=== PATIENT | female | born 2005 | race Caucasian/White ===

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

== ENCOUNTER → 2023-01-10 | Outpatient (CLI) | payer OTHER ==
[2023-01-10 22:58] LABS: Gliadin AB IgA, Deaminated Negative (Negative); Gliadin AB IgA, Unit 1.9 U/mL; Gliadin AB IgG, Deaminated Negative (Negative); Gliadin AB IgG, Unit <0.4 U/mL
== END | disposition home or self-care (01) ==
LOC: LABWHC1 12:58
PROVIDERS: ATTEND Nurse Practitioner Family
DX: R10.9 Unspecified abdominal pain (principal)
CPT/HCPCS: 36415; 83516; 85652; 86140

== ENCOUNTER → 2023-02-20 | Outpatient (CLI) | payer OTHER ==
--- NOTE | 2023-02-20 12:40 | FL ---
EXAMINATION TYPE: FL UGI air w small bowel DATE OF EXAM: 02/20/2023 11:39 AM COMPARISON: NONE CLINICAL HISTORY: R10.9 UNSPECIFIED ABDOMINAL PAIN 1 min 26 sec fluoro time. Total images 43 Preliminary film of the abdomen reveals no definite abnormality. Upper GI examination was performed u tilizing the air contrast technique. Barium and effervescent crystals were swallowed without difficu lty or delay. Esophageal peristalsis and motility are within normal limits. There is no evidence fo r hiatal hernia or esophagitis. The stomach has a normal size, shape and position. No gastric fillin g defects are seen. No gastric ulcer craters are seen. The duodenal bulb and sweep appear to be candelario ssly unremarkable without evidence for filling defect or ulcer crater. Small bowel follow through is performed with a normal transit time. The small bowel loops are of norm al caliber and demonstrate a normal mucosal fold pattern. The terminal ileum demonstrates nodularity which may reflect nodular lymphoid hyperplasia. IMPRESSION: The terminal ileum demonstrates nodularity which may reflect nodular lymphoid hyperplasia. The remain brittany of the examination is unremarkable.
== END | disposition home or self-care (01) ==
LOC: RADFLMAIN 09:03
PROVIDERS: ATTEND Internal Medicine Gastroenterology
DX: R10.9 Unspecified abdominal pain (principal)
CPT/HCPCS: 74240; 74248

== ENCOUNTER → 2024-01-20 | Outpatient (CLI) | payer OTHER ==
--- NOTE | 2024-01-20 10:01 | MR ---
EXAMINATION TYPE: MR brain wo con DATE OF EXAM: 01/20/2024 COMPARISON: NONE HISTORY: 18-year-old female G43.909, migraines, Headaches, right sided hearing loss. TECHNIQUE: Multiplanar, multisequence images of the brain and brainstem were acquired without IV con trast. Diffusion weighted imaging is performed. FINDINGS: No evidence for acute infarction, hemorrhage, mass, mass effect, midline shift, herniation, effacemen t of basal cisterns, or extra-axial fluid collection. The ventricles and sulci are age-appropriate. Major intracranial flow voids are intact. T2/FLAIR weighted sequences show no white matter signal abnormality. Midline structures demonstrate normal morphology. The craniocervical junction is normal. There is scattered mild to moderate mucosal thickening within the ethmoid air cells and slight leftwa rd nasal septal deviation. Globes appear intact but with slightly bulbous appearance to the optic ner ve sheath directly behind the globe. The remainder of the optic nerve sheaths appear normal caliber. No empty sella. IMPRESSION: 1. No acute intracranial abnormality or abnormal white matter signal changes identified. 2. Slightly bulbous appearance to the optic nerve sheaths directly behind the globes probably represe nting some dural ectasia. The remainder of the optic nerve sheaths appear normal and there is no empt y sella to further support the possibility of pseudotumor cerebri. Consider correlation with fundusco pic exam and any visual symptoms. 3. Mild to moderate chronic ethmoid sinus disease.
== END | disposition home or self-care (01) ==
LOC: RADMRIMAIN 06:55
PROVIDERS: ATTEND Family Medicine
DX: G43.909 Migraine, unspecified, not intractable, without status migrainosus (principal); J32.2 Chronic ethmoidal sinusitis; H91.91 Unspecified hearing loss, right ear
CPT/HCPCS: 70551